=== PATIENT | male | born 1955 | race Caucasian/White ===

== ENCOUNTER 2023-02-08 06:10 | Day surgery (SDC) | payer MEDICARE, BC ==
[2023-02-08] MEDS ORDERED: Xylocaine 1% Vial 30 ML PF IJ ONE (06:13)
[2023-02-08] MEDS ORDERED: Marcaine Mpf 0.5% Vial 30 Ml ONE (06:13)
[2023-02-08] MEDS ORDERED: CEFAZOLIN 2 GM-D5W BAG** 2 GM/50 ML ML IV SCH (06:30)
[2023-02-08] MEDS ORDERED: Lactated Ringers 1,000 ML IV SCH (06:30)
[2023-02-08 06:35] LABS: Hematocrit 42.4 % (42-50); Mean Cell Volume 91.8 fL (78-100); Mean Corpuscular Hemoglobin 30.3 pg (26-32); Mean Platelet Volume 9.1 fL (7.5-11.0); Platelet Count 248 x10^3/uL (150-450); Red Blood Count 4.62 x10^6/uL (4.1-5.6); Red Cell Distribution Width 13.6 % (11.5-14.0); White Blood Count 8.4 x10^3/uL (4.0-10.5)
[2023-02-08 06:39] VITALS: RESP 18
[2023-02-08 06:51] LABS: ALBUMIN 3.9 g/dL (3.5-5.0); ANION GAP 16.1 MEQ/L (5-15); BILIRUBIN,TOTAL 0.6 mg/dL (0.2-1.3); Calcium 8.4 mg/dL (8.4-10.2); Creatinine 1 1.5 mg/dL (0.66-1.25); EST GLOMERULAR FILTRATION RATE 49.6 ML/MIN; Potassium 4.5 mmol/L (3.5-5.1); Total Protein 7.2 g/dL (6.3-8.2)
[2023-02-08] MEDS ORDERED: DIPRIVAN 200 MG/20 ML IV ONE ×2 (06:56)
[2023-02-08] MEDS ORDERED: Versed 2 MG/2 ML Injection ONE (06:56)
[2023-02-08] MEDS ORDERED: SUBLIMAZE 100 MCG/2 ML ONE (06:56)
[2023-02-08] MEDS ORDERED: Xylocaine-Mpf 2% 5 Ml Vial ONE (06:56)
[2023-02-08 07:07] LABS: INR 0.98 (0.8-3.0); PROTIME 10.7 SECONDS (9.4-12.5); PTT 26.8 SECONDS (25.1-36.5)
[2023-02-08 08:33] VITALS: O2SAT 97
[2023-02-08 09:03] VITALS: BP 127/98; PULSE 65; TEMP 97.6
--- NOTE | 2023-02-11 08:00 | OP ---
SURGERY DATE: 02/08/2023 0704 PREOPERATIVE DIAGNOSES: 1) Soft tissue mass left foot. 2) Osteoarthritis first tarsometatarsal joint left foot. 3) Pain left foot. POSTOPERATIVE DIAGNOSES: 1) Soft tissue mass left foot. 2) Osteoarthritis first tarsometatarsal joint left foot. 3) Pain left foot. PROCEDURES: 1) Removal of soft tissue mass. 2) Arthrotomy of tarsometatarsal joint left foot. SURGEON: Ciaran Avila DPM. SNIPPER: None. ANESTHESIA: Monitored anesthesia care. HEMOSTASIS: Ankle tourniquet set 250 mm of [place] for approximately 25 total tourniquet minutes. ESTIMATED BLOOD LOSS: Minimal. INJECTABLES: 16 cc of a 1:1 mixture of 1% lidocaine plain and 0.5% bupivacaine plain injected in a V block type fashion to the proximal aspect of the surgical site left foot. INDICATION FOR SURGERY: Yogi is a very pleasant 67-year-old male who presented to my clinic with complaints of pain to the inner aspect of the left foot. The patient has had this pain for quite some time which has caused him some difficulty with ambulation particularly on uneven terrain and does seem to come out of nowhere sometimes. The patient was offered a number of modalities from the conservative perspective. The patient demonstrated no resolution with the modality. MRI was obtained showing some small soft tissue mass in that area. However, some degenerative changes to the first tarsometatarsal joint. As a result, options were discussed with the patient and the patient opted to proceed with surgical intervention at this time. The patient's pain is reproducible and is localized fairly closely to where the soft tissue mass and the arthritis is so options were discussed with the patient and the patient wished to proceed with removal of the soft tissue mass as well as the arthrotomy of the joint in hopes to alleviate her pain. The patient understands all risks, complications and benefits of surgical intervention at this time including but not limited to infection, hematoma, seroma, possibility of delayed wound healing, nonwound healing, possible nerve damage, and possible need of surgical intervention at a later date or failure of surgical outcome. No guarantees were provided as to the outcome. It is with that we decided to proceed. DESCRIPTION OF PROCEDURE AND FINDINGS: The patient was brought into the OR and placed on the OR table in the supine position. At this time monitored anesthesia care was administered. A well-padded ankle tourniquet was applied to the patient's left ankle. The left lower extremity was prepped and draped in the typical sterile fashion and lowered onto the surgical field. At this time, the pinpoint tenderness location was identified. Esmarch was utilized to exsanguinate the leg. A linear incision was made over the point of maximum tenderness which was identified previously this was made making sure not to damage any neurovascular structures along the way. This was carried down to the tarsometatarsal joint where obvious osteoarthritis was identified and resected from the joint. The soft tissue mass was found off the plantar aspect of the tarsometatarsal joint which seemed to connect with some atrophy to the abductor hallucis muscle belly which was resected of its fascial tissue on the dorsal aspect and some of the adipose tissue was removed from this site as well. Following this, copious amounts of sterile saline were utilized to flush the surgical site. A closure consisting of 4-0 Monocryl simple buried interrupted was utilized for the subcutaneous margins and 3-0 Nylon in a horizontal mattress-type fashion was utilized to coapt the skin edges in an everted-type fashion. Dressing consisting of Betadine, Adaptic, 4x4, Kerlix and KATIUSKA was then applied to the patient's left lower extremity. The patient was reversed from anesthesia and returned to the postoperative anesthesia care unit with vital signs stable and vascular status intact. The patient handled the anesthesia as well as the procedure without significant complication. Postoperative orders as indicated in the patient's discharge chart.
== END 2023-02-08 08:55 | disposition home or self-care (01) ==
LOC: SDC 06:10
PROVIDERS: ATTEND Podiatrist Foot & Ankle Surgery
DX: R22.42 Localized swelling, mass and lump, left lower limb (principal); M19.072 Primary osteoarthritis, left ankle and foot; M79.672 Pain in left foot; I10 Essential (primary) hypertension
CPT/HCPCS: 36415; 80053; 85027; 85610; 85730; 93005; J0690; J2001; J2250; J2704; J3010

== ENCOUNTER 2023-02-15 06:13 | Day surgery (SDC) | payer MEDICARE, BC ==
[2023-02-15] MEDS ORDERED: Xylocaine 1% Vial 30 ML PF IJ ONE (06:27)
[2023-02-15] MEDS ORDERED: Marcaine Mpf 0.5% Vial 30 Ml ONE (06:27)
[2023-02-15] MEDS ORDERED: CEFAZOLIN 2 GM-D5W BAG** 2 GM/50 ML ML IV SCH (06:30)
[2023-02-15] MEDS ORDERED: Lactated Ringers 1,000 ML IV SCH (06:30)
[2023-02-15] MEDS ORDERED: Versed 2 MG/2 ML Injection IV PRN (07:14)
[2023-02-15] MEDS ORDERED: SUBLIMAZE 100 MCG/2 ML ONE (08:33)
[2023-02-15] MEDS ORDERED: Versed 2 MG/2 ML Injection ONE ×3 (08:33→08:38)
[2023-02-15 09:40] VITALS: BP 120/70; PULSE 60; RESP 18; TEMP 97; O2SAT 95
--- NOTE | 2023-02-18 14:28 | OP ---
SURGERY DATE: 02/15/2023 SURGERY TIME: 828 PREOPERATIVE DIAGNOSIS: 1. SOFT TISSUE MASS LEFT FOOT. POSTOPERATIVE DIAGNOSIS: 1. SOFT TISSUE MASS LEFT FOOT. PROCEDURE: 1. Removal of soft tissue mass left foot. SURGEON: Ciaran Avila D.P.M. HEEL CASER: None. ANESTHESIA: [place] with versed and a local block consisting of 20 cc of a 1:1 mixture of 1% Lidocaine plain and 0.5% Bupivicaine plain injected in a B-block type fashion. HEMOSTASIS: An ankle tourniquet set to 250 mm Hg for approximately 8 total tourniquet minutes. ESTIMATED BLOOD LOSS: Minimal. MATERIALS: 4-0 Monocryl, 3-0 Nylon. INJECTABLES: 20 cc of a 1:1 mixture of 1% Lidocaine plain and 0.5% Bupivicaine plain injected in a B-block type fashion. DESCRIPTION OF PROCEDURE: The patient was brought into the OR. Placed on the OR table in the supine position at this time. The patient was provided Versed for light sedation. A well-padded ankle tourniquet was applied and the tourniquet was set to 250 mm Hg. At this time, the left foot was prepped and draped in the typical sterile fashion and lowered onto the surgical field. At this time, a 20 cc injection was provided in a B-block type fashion in order to block the surgical site. Following this, a linear incision was made at the moccasin line at the plantar medial aspect of the left foot just proximal to the 1st metatarsophalangeal joint. This was carried down utilizing blunt dissection in order to identify the soft tissue mass. The soft tissue mass was inspected and it did appear to look like a ganglion cyst which was attempted to be carefully resected. However, I do believe it was popped. The capsule of the ganglion cyst was removed and the stalk was identified which was cauterized. A large amount of adipose tissue was identified as well with some encapsulation which was removed from this site as well. Both of these were handed off the field for pathological assessment. At this time, copious amounts of sterile saline were utilized to flush the surgical site. Soft tissue mass over the plantar aspect of the foot was palpated and felt to be completely removed at that time. At that time, 4-0 Monocryl was utilized to coapt the subcutaneous edges in a simple interrupted type fashion and 3-0 Nylon was utilized in a horizontal mattress type fashion to coapt the skin edges in an everted type fashion. Tourniquet was let down with approximately 8 total tourniquet minutes. The patient was then reversed from anesthesia and returned to the postoperative anesthesia care unit with vital signs stable and vascular status intact. The patient handled the anesthesia as well as the procedure without significant complication. Postoperative orders as indicated in the patient's discharge chart.
== END 2023-02-15 08:48 | disposition home or self-care (01) ==
LOC: SDC 06:13
PROVIDERS: ATTEND Podiatrist Foot & Ankle Surgery
DX: R22.42 Localized swelling, mass and lump, left lower limb (principal)
CPT/HCPCS: 28039; J0690; J2001; J2250; J3010

== ENCOUNTER 2023-05-31 03:26 | Observation (INO) | payer MEDICARE, BC ==
[2023-05-31] MEDS ORDERED: BABY ASPIRIN 81 MG CHEW PO ONE (03:54)
--- NOTE | 2023-05-31 03:57 | ERPHSYRPT ---
- History of Present Illness Time Seen by Provider: 05/31/23 03:40 Historian: patient, family Exam Limitations: no limitations Patient Subjective Stated Complaint: pt states he has been having intermittent chest pain since yesterday. tonight pain is worse and radiating down his lt arm. pt states wrosew ith laying down and coughing Triage Nursing Assessment: pt alert and oriented, answers questions approp. pt ambulates into room with steady gait noted. respirations nonlabored with lungs cta. skin warm and dry. heart rate 69 on monitor, sinus rhythm Physician History: This is an obese 67-year-old white male patient of Dr. Mojica who has been found in the past on a cardiac catheterization procedure to have some at herosclerotic heart disease but no cardiac stent was placed. Patient is not on any anticoagulation therapy. He is on a baby aspirin today. He presents to the emergency department with left-sided sharp chest pain that radiates into the left arm. There was mild intermittent pain yesterday evening and it seemed to let up some but then returned this morning stronger in intensity. Patient also has had a mild coughing episode. Patient was never told he has actually had a myocardial infarction. His technician chemical cleaning is Dr. Padilla. He has stage III kidney disease and sees inside sales lead Dr. Elena. He has had no recent long travel. He has no bleeding or clotting disorders. Patient does not smoke and has never smoked. He does have a history of hyperlipidemia and hypertension. Patient has not taken his morning medication. Timing/Duration: yesterday Quality: sharpness Location: other (Left anterior chest) Chest Pain Radiation: arm (Left) Severity of Pain-Max: mild (Moderate) Modifying Factors: Improves With: coughing (Worsens), lying down (Worsens) Associated Symptoms: cough (Mild dry) Prior Chest Pain/Cardiac Workup: cardiac cath Nitro Today/Relief: no nitro taken today Aspirin Treatment Today: no aspirin today Allergies/Adverse Reactions: No Known Drug Allergies Allergy (Verified 05/31/23 03:47) Home Medications: Aspirin 81 gm Chew [Baby Aspirin 81 mg Chew] 1 tab PO DAILY 01/22/23 [History] Lisinopril 5 mg [Zestril 5 MG] 1 tab PO DAILY 01/22/23 [History] Metoprolol Succinate 50 mg [Toprol Xl 50 MG] 50 mg PO DAILY 01/22/23 [History] Rosuvastatin Calcium 10 mg PO DAILY 01/22/23 [History] Tadalafil [Cialis] 5 mg PO DAILY PRN PRN 01/22/23 [History] Zolpidem Tartrate 10 mg [Ambien 10 MG] 1 tab PO HS 01/22/23 [History] Hx Tetanus, Diphtheria Vaccination/Date Given: Yes Hx Influenza Vaccination/Date Given: Yes Hx Pneumococcal Vaccination/Date Given: Yes Immunizations Up to Date: Yes Travel Risk - International Travel Have you traveled outside of the country in past 3 weeks: No - Coronavirus Screening Are you exhibiting any of the following symptoms?: No Close contact with a COVID-19 positive Pt in past 14-21 Days: No - Vaccine Status Have you recieved a Covid-19 vaccination: Yes Planning Rn: Genticel - Vaccination Dates Date of 2cond Vaccination (if applicable): 2020 - Review of Systems Constitutional: No Symptoms Eyes: No Symptoms Ears, Nose, & Throat: No Symptoms Respiratory: Cough Cardiac: Chest Pain Abdominal/Gastrointestinal: No Symptoms Genitourinary Symptoms: No Symptoms Musculoskeletal: No Symptoms Skin: No Symptoms Neurological: No Symptoms Psychological: No Symptoms Endocrine: No Symptoms Hematologic/Lymphatic: No Symptoms Immunological/Allergic: No Symptoms All Other Systems: Reviewed and Negative - Past Medical History Pertinent Past Medical History: Yes Neurological History: No Pertinent History ENT History: Cataracts Cardiac History: No Pertinent History, High Cholesterol, Hypertension Respiratory History: No Pertinent History, Other Endocrine Medical History: No Pertinent History Musculoskeletal History: No Pertinent History GI Medical History: Gallbladder Disease History: No Pertinent History, Renal Disease Psycho-Social History: No Pertinent History Male Reproductive Disorders: No Pertinent History Other Medical History: insomnia, sinus, gallstone,enoch cataract removal, stage 3 kidney disease - Past Surgical History Past Surgical History: Yes Neuro Surgical History: No Pertinent History Cardiac: No Pertinent History Respiratory: Other Gastrointestinal: Cholecystectomy Genitourinary: No Pertinent History Musculoskeletal: No Pertinent History Male Surgical History: No Pertinent History Other Surgical History: sinus surgery x4 left foot surgery. heart cath- no stents, some 30% blockages - Social History Smoking Status: Never smoker Exposure to second hand smoke: No Drug Use: none Patient Lives Alone: Yes - Nursing Vital Signs Nursing Vital Signs: Initial Vital Signs Temperature 97.6 F 12/01/23 03:34 Pulse Rate 68 05/31/23 03:34 Respiratory Rate 16 05/31/23 03:34 Blood Pressure 130/81 05/31/23 03:34 O2 Sat by Pulse Oximetry 95 05/31/23 03:34 Pain Scale Pain Intensity 3 - Physical Exam General Appearance: no apparent distress, alert, obese Eye Exam: PERRL/EOMI, eyes nml inspection Ears, Nose, Throat Exam: normal ENT inspection, moist mucous membranes Neck Exam: normal inspection, non-tender, supple, full range of motion Respiratory Exam: normal breath sounds, chest tenderness, lungs clear, airway intact, No respiratory distress Cardiovascular Exam: regular rate/rhythm, normal heart sounds, normal peripheral pulses Gastrointestinal/Abdomen Exam: soft, normal bowel sounds, No tenderness Rectal Exam: not done Back Exam: normal inspection, normal range of motion, No CVA tenderness, No vertebral tenderness Extremity Exam: normal inspection, normal range of motion, pelvis stable Neurologic Exam: alert, oriented x 3, cooperative, neon molder II-XII nml as tested, normal mood/affect, nml cerebellar function, nml station & gait, sensation nml Skin Exam: normal color, warm, dry Lymphatic Exam: No adenopathy SpO2 Interpretation: normal SpO2: 95 O2 Delivery: Room Air - Course Nursing assessment & vital signs reviewed: Yes EKG Interpreted by Me: RATE (69), Sinus Rhythm, Left [place] Deviation (Borderline), NORMAL INTERVALS, NORMAL QRS, NORMAL ST-T, Other (No acute ischemic changes on today's twelve-lead EKG) Ordered Tests: Active Orders 24 hr Category Date Time Status Precision Lens Generator STAT Care 05/31/23 03:55 Active EKG-ER Only STAT Care 05/31/23 03:54 Active IV Insertion STAT Care 05/31/23 03:54 Active Pulse Oximetry (ED) STAT Care 05/31/23 03:54 Active CHEST 1 VIEW (PORTABLE) Stat Exams 05/31/23 03:54 Taken CBC W DIFF Stat Lab 05/31/23 03:30 Completed CMP Stat Lab 05/31/23 03:30 Completed D-DIMER QUANTITATIVE Stat Lab 05/31/23 03:30 Completed NT PRO BNPII Stat Lab 05/31/23 03:30 Completed TROPONIN Q4H Lab 05/31/23 03:30 Completed TROPONIN Q4H Lab 05/31/23 08:00 Ordered TROPONIN Q4H Lab 05/31/23 12:00 Ordered Transfer Order Routine Transfer 05/31/23 Ordered Medication Summary Generic Name Dose Route Start Last Admin Trade Name Kelly PRN Reason Stop Dose Admin Sodium Chloride 1,000 mls @ 100 mls/hr 05/31/23 04:45 05/31/23 04:41 Sodium Chloride 0.9% 1000 Ml IV 06/30/23 04:44 100 mls/hr .Q10H HARRY Administration Discontinued Medications Generic Name Dose Route Start Last Admin Trade Name Kelly PRN Reason Stop Dose Admin Aspirin 324 mg 05/31/23 03:54 05/31/23 04:03 Aspirin 81 Mg Tab.Chew PO 05/31/23 03:55 324 mg STAT ONE Administration Aspirin Confirm 05/31/23 04:00 Aspirin 81 Mg Tab.Chew Administered 05/31/23 04:01 Dose 324 mg .ROUTE .STK-MED ONE Morphine Sulfate 2 mg 05/31/23 04:13 05/31/23 04:46 Morphine Sulfate 2 Mg/Ml Inj IV 05/31/23 04:14 2 mg STAT ONE Administration Morphine Sulfate Confirm 05/31/23 04:39 Morphine Sulfate 4 Mg/Ml Injection Administered 05/31/23 04:40 Dose 4 mg .ROUTE .STK-MED ONE Morphine Sulfate Confirm 05/31/23 04:45 Morphine Sulfate 2 Mg/Ml Inj Administered 05/31/23 04:46 Dose 2 mg .ROUTE .STK-MED ONE Ondansetron HCl 4 mg 05/31/23 04:13 05/31/23 04:43 Ondansetron Hcl 4 Mg/2 Ml Vial IV 05/31/23 04:14 4 mg STAT ONE Administration Ondansetron HCl Confirm 05/31/23 04:39 Ondansetron Hcl 4 Mg/2 Ml Vial Administered 05/31/23 04:40 Dose 4 mg .ROUTE .STK-MED ONE Lab/Rad Data: Laboratory Result Diagrams 05/31/23 03:30 05/31/23 03:30 Laboratory Results 05/31/23 05/31/23 05/31/23 Range/Units 03:30 03:30 03:30 WBC (4.0-10.5) x10^3/uL RBC (4.1-5.6) x10^6/uL Hgb (12.5-18.0) g/dL Hct (42-50) % MCV (78-100) fL MCH (26-32) pg MCHC (32-36) g/dL RDW (11.5-14.0) % Plt Count (150-450) x10^3/uL MPV (7.5-11.0) fL Gran % (36.0-66.0) % Immature Gran % (Auto) (0.00-0.4) % Nucleat RBC Rel Count (0.00-0.1) % Eos # (Auto) (0-0.5) x10^3/uL Immature Gran # (Auto) (0.00-0.03) x10^3u/L Absolute Lymphs (auto) (1.0-4.6) x10^3/uL Absolute Monos (auto) (0.0-1.3) x10^3/uL Absolute Nucleated RBC (0.00-0.01) x10^3u/L Lymphocytes % (24.0-44.0) % Monocytes % (0.0-12.0) % Eosinophils % (0.00-5.0) % Basophils % (0.0-0.4) % Absolute Granulocytes (1.4-6.9) x10^3/uL Basophils # (0-0.4) x10^3/uL D-Dimer 0.35 (0.0-0.50) mg/L Sodium 138 (137-145) mmol/L Potassium 4.1 (3.5-5.1) mmol/L Chloride 104 (98-107) mmol/L Carbon Dioxide 26 (22-30) mmol/L Anion Gap 12.7 (5-15) MEQ/L BUN 21 H (9-20) mg/dL Creatinine 1.48 H (0.66-1.25) mg/dL Estimated GFR 51.5 ML/MIN Glucose 98 (74-106) mg/dL Calcium 8.8 (8.4-10.2) mg/dL Total Bilirubin 0.70 (0.2-1.3) mg/dL AST 29 (17-59) U/L ALT 23 (0-50) U/L Alkaline Phosphatase 54 (38-126) U/L Troponin I < 0.012 (0.000-0.034) ng/mL NT-Pro-B Natriuret Pep 98.0 (<300) pg/mL Serum Total Protein 7.6 (6.3-8.2) g/dL Albumin 4.1 (3.5-5.0) g/dL 05/31/23 Range/Units 03:30 WBC 8.6 (4.0-10.5) x10^3/uL RBC 4.84 (4.1-5.6) x10^6/uL Hgb 14.6 (12.5-18.0) g/dL Hct 44.2 (42-50) % MCV 91.3 (78-100) fL MCH 30.2 (26-32) pg MCHC 33.0 (32-36) g/dL RDW 13.2 (11.5-14.0) % Plt Count 271 (150-450) x10^3/uL MPV 9.0 (7.5-11.0) fL Gran % 62.5 (36.0-66.0) % Immature Gran % (Auto) 0.5 H (0.00-0.4) % Nucleat RBC Rel Count 0.0 (0.00-0.1) % Eos # (Auto) 0.27 (0-0.5) x10^3/uL Immature Gran # (Auto) 0.04 H (0.00-0.03) x10^3u/L Absolute Lymphs (auto) 1.90 (1.0-4.6) x10^3/uL Absolute Monos (auto) 0.97 (0.0-1.3) x10^3/uL Absolute Nucleated RBC 0.00 (0.00-0.01) x10^3u/L Lymphocytes % 22.0 L (24.0-44.0) % Monocytes % 11.3 (0.0-12.0) % Eosinophils % 3.1 (0.00-5.0) % Basophils % 0.6 (0.0-0.4) % Absolute Granulocytes 5.39 (1.4-6.9) x10^3/uL Basophils # 0.05 (0-0.4) x10^3/uL D-Dimer (0.0-0.50) mg/L Sodium (137-145) mmol/L Potassium (3.5-5.1) mmol/L Chloride (98-107) mmol/L Carbon Dioxide (22-30) mmol/L Anion Gap (5-15) MEQ/L BUN (9-20) mg/dL Creatinine (0.66-1.25) mg/dL Estimated GFR ML/MIN Glucose (74-106) mg/dL Calcium (8.4-10.2) mg/dL Total Bilirubin (0.2-1.3) mg/dL AST (17-59) U/L ALT (0-50) U/L Alkaline Phosphatase (38-126) U/L Troponin I (0.000-0.034) ng/mL NT-Pro-B Natriuret Pep (<300) pg/mL Serum Total Protein (6.3-8.2) g/dL Albumin (3.5-5.0) g/dL - Progress Progress: improved, re-examined Air Movement: good Progress Note: 05/31/23 04:18 This patient's medical workup is 1 of moderate complexity. Level of complexity in the workup performed is based on review of the patient's past medical history, review the patient's medication list, review the patient drug allergy list, history present illness and physical findings on examination. The workup in this patient includes placement of intravenous line, providing the patient with 4 baby aspirin to chew, CBC, CMP, D-dimer, BNP, troponin level, twelve-lead EKG and chest x-ray. We will also provide the patient with 2 mg of intravenous morphine and 4 mg of intravenous Zofran. 05/31/23 04:57 The laboratory results were interpreted by me. This point the patient does not show any acute, emergent laboratory data results that are of concern. However, this patient's heart score is over 4. We will contact the hospitalist regarding placing this patient in observation for acute coronary syndrome. This patient's chest x-ray was interpreted by me. There is no evidence of any acute cardiopulmonary process. The patient does have cardiomegaly. 05/31/23 05:37 I discussed this patient's history, presenting complaint, physical findings on examination and patient response to our intervention. Although the patient's laboratory data and twelve-lead EKG as well as chest x-ray did not show anything acute or emergent, patient's heart score is at least 5 on my calculation. I spoke with telehospitalist Dr. Campoverde and we will place him in observation on telemetry and rule him out with a diagnosis of acute coronary syndrome. Blood Culture(s) Obtained: No Antibiotics given: No Counseled pt/family regarding: lab results, diagnosis, rad results Medical Desision Making - Independent Historian Additional History obtained from: Spouse - Discussion of managment Care discussed with:: hospitalist Reviewed:: Test results, Need for additional workup Agreed on:: place in obs Will see patient: in hospital - Diagnostic Testing Diagnostic test were ordered, analyzed, and reviewed by me: Yes Radiological Interpretation: Interpreted by me, Teleradiologist Report - Risk of complications The pt has a high risk of morbidity or mortality based on: Decision regarding hospitilization or escalation of hosp level of care - Departure Departure Disposition: Observation Clinical Impression: Acute coronary syndrome Condition: Stable Critical Care Time: No Referrals: ONI MOJICA [Primary Care Provider] - Follow up/PCP as directed
[2023-05-31] MEDS ORDERED: BABY ASPIRIN 81 MG CHEW ONE (04:00)
[2023-05-31 04:01] LABS: Absolute Neutrophil Ct (ANC) 5.39 x10^3/uL (1.4-6.9); BASOPHIL % 0.6 % (0.0-0.4); Basophil (Absolute #) 0.05 x10^3/uL (0-0.4); Eosinophil % 3.1 % (0.00-5.0); Eosinophil (Absolute #) 0.27 x10^3/uL (0-0.5); Hematocrit 44.2 % (42-50); Hemoglobin 14.6 g/dL (12.5-18.0); IMMATURE GRAN # 0.04 x10^3u/L (0.00-0.03); IMMATURE GRAN % 0.5 % (0.00-0.4); Mean Cell Volume 91.3 fL (78-100); Mean Corpuscular Hemoglobin 30.2 pg (26-32); Monocyte (Absolute #) 0.97 x10^3/uL (0.0-1.3); Monocytes % 11.3 % (0.0-12.0); Neutrophil % 62.5 % (36.0-66.0); Platelet Count 271 x10^3/uL (150-450); Red Blood Count 4.84 x10^6/uL (4.1-5.6); Red Cell Distribution Width 13.2 % (11.5-14.0); White Blood Count 8.6 x10^3/uL (4.0-10.5)
[2023-05-31] MEDS ORDERED: MORPHINE SULFATE 2 MG INJ IV ONE (04:13)
[2023-05-31] MEDS ORDERED: Zofran 4 MG/2 ML VIAL IV ONE (04:13)
[2023-05-31 04:22] LABS: ALBUMIN 4.1 g/dL (3.5-5.0); ANION GAP 12.7 MEQ/L (5-15); BILIRUBIN,TOTAL 0.7 mg/dL (0.2-1.3); Calcium 8.8 mg/dL (8.4-10.2); Creatinine 1 1.48 mg/dL (0.66-1.25); EST GLOMERULAR FILTRATION RATE 51.5 ML/MIN; Potassium 4.1 mmol/L (3.5-5.1); Total Protein 7.6 g/dL (6.3-8.2)
[2023-05-31] MEDS ORDERED: MORPHINE SULFATE 4 MG INJ ONE (04:39)
[2023-05-31] MEDS ORDERED: Zofran 4 MG/2 ML VIAL ONE (04:39)
[2023-05-31] MEDS: Sodium Chloride 0.9% 1000 ML 1,000 ML IV SCH ×4 (04:41→23:54)
[2023-05-31] MEDS ORDERED: MORPHINE SULFATE 2 MG INJ ONE (04:45)
[2023-05-31] MEDS ORDERED: Zofran 4 MG/2 ML VIAL IV PRN (06:01)
[2023-05-31] MEDS ORDERED: TYLENOL 325 MG PO PRN (06:01)
--- NOTE | 2023-05-31 07:05 | PCM.HP ---
History of Present Illness - Chief Complaint Chief Complaint: Acute coronary syndrome Date: 05/31/23 History of Present Illness: Mr. Danielson is a 67 year old male with a past medical history significant for hypertension, hyperlipidemia, chronic kidney disease stage IIIa and previous MT status post cardiac cath in January 2023 that had demonstrated noncritical coronary artery disease that did not require stenting (35%) who presents to the hospital with complaints of increasing chest pain for the past couple days that traveled down the L arm. He denies any fever or chills. No shortness of breath. No nausea, vomiting or diarrhea. - Review of Systems Constitutional: No Symptoms Eyes: No Symptoms Ears, Nose, & Throat: No Symptoms Respiratory: No Symptoms Cardiac: Chest Pain Abdominal/Gastrointestinal: No Symptoms Genitourinary Symptoms: No Symptoms Musculoskeletal: No Symptoms Skin: No Symptoms Neurological: No Symptoms Psychological: No Symptoms Endocrine: No Symptoms Medications & Allergies Home Medications: Home Medication List Aspirin 81 gm Chew [Baby Aspirin 81 mg Chew] 1 tab PO DAILY 01/22/23 [History Confirmed 05/31/23] Lisinopril 5 mg [Zestril 5 MG] 1 tab PO DAILY 01/22/23 [History Confirmed 05/31/23] Metoprolol Succinate 50 mg [Toprol Xl 50 MG] 50 mg PO HS 01/22/23 [History Confirmed 05/31/23] Rosuvastatin Calcium 10 mg PO DAILY 01/22/23 [History Confirmed 05/31/23] Tadalafil [Cialis] 5 mg PO DAILY PRN PRN 01/22/23 [History Confirmed 05/31/23] Zolpidem Tartrate 10 mg [Ambien 10 MG] 1 tab PO HS 01/22/23 [History Confirmed 05/31/23] Omeprazole 20 mg PO DAILY 05/31/23 [History Confirmed 05/31/23] Allergies/Adverse Reactions: Allergies Allergy/AdvReac Type Severity Reaction Status Date / Time No Known Drug Allergies Allergy Verified 05/31/23 03:47 - Past Medical History Past Medical History: Yes Neurological History: No Pertinent History ENT History: Cataracts Cardiac History: No Pertinent History, High Cholesterol, Hypertension Respiratory History: No Pertinent History, Other Endocrine Medical History: No Pertinent History Musculoskelatal History: No Pertinent History GI Medical History: Gallbladder Disease History: No Pertinent History, Renal Disease Pyscho-Social History: No Pertinent History Male Reproductive Disorders: No Pertinent History Comment: insomnia, sinus, gallstone,enoch cataract removal, stage 3 kidney disease - Past Surgical History Past Surgical History: Yes Neuro Surgical History: No Pertinent History Cardiac History: No Pertinent History Respiratory Surgery: Other GI Surgical History: Cholecystectomy Genitourinary Surgical Hx: No Pertinent History Musculskeletal Surgical Hx: No Pertinent History Male Surgical History: No Pertinent History Other Surgical History: sinus surgery x4 left foot surgery. heart cath- no stents, some 30% blockages - Social History Smoking Status: Never smoker Exposure to second hand smoke: No Alcohol: None Drug Use: none - Physical Exam Vital Signs: Vital Signs - 24 hr Temp Pulse Pulse Resp BP BP Pulse Ox 05/31/23 05:42 95 05/31/23 05:01 68 18 136/82 92 L 05/31/23 04:30 65 22 107/61 94 L 05/31/23 04:00 69 17 125/82 93 L 05/31/23 03:54 97 05/31/23 03:34 97.6 F 68 68 16 130/81 95 General Appearance: no apparent distress Neurologic Exam: alert, oriented x 3 Neck Exam: supple Respiratory Exam: lungs clear, No rhonchi, No wheezing Cardiovascular Exam: regular rate/rhythm Gastrointestinal/Abdomen Exam: soft Extremity Exam: No pedal edema Skin Exam: normal color Results - Labs Lab/Micro Results: Lab Results-Last 24 Hours 05/31/23 05/31/23 05/31/23 Range/Units 03:30 03:30 03:30 WBC 8.6 (4.0-10.5) x10^3/uL RBC 4.84 (4.1-5.6) x10^6/uL Hgb 14.6 (12.5-18.0) g/dL Hct 44.2 (42-50) % MCV 91.3 (78-100) fL MCH 30.2 (26-32) pg MCHC 33.0 (32-36) g/dL RDW 13.2 (11.5-14.0) % Plt Count 271 (150-450) x10^3/uL MPV 9.0 (7.5-11.0) fL Gran % 62.5 (36.0-66.0) % Immature Gran % (Auto) 0.5 H (0.00-0.4) % Nucleat RBC Rel Count 0.0 (0.00-0.1) % Eos # (Auto) 0.27 (0-0.5) x10^3/uL Immature Gran # (Auto) 0.04 H (0.00-0.03) x10^3u/L Absolute Lymphs (auto) 1.90 (1.0-4.6) x10^3/uL Absolute Monos (auto) 0.97 (0.0-1.3) x10^3/uL Absolute Nucleated RBC 0.00 (0.00-0.01) x10^3u/L Lymphocytes % 22.0 L (24.0-44.0) % Monocytes % 11.3 (0.0-12.0) % Eosinophils % 3.1 (0.00-5.0) % Basophils % 0.6 (0.0-0.4) % Absolute Granulocytes 5.39 (1.4-6.9) x10^3/uL Basophils # 0.05 (0-0.4) x10^3/uL D-Dimer 0.35 (0.0-0.50) mg/L Sodium 138 (137-145) mmol/L Potassium 4.1 (3.5-5.1) mmol/L Chloride 104 (98-107) mmol/L Carbon Dioxide 26 (22-30) mmol/L Anion Gap 12.7 (5-15) MEQ/L BUN 21 H (9-20) mg/dL Creatinine 1.48 H (0.66-1.25) mg/dL Estimated GFR 51.5 ML/MIN Glucose 98 (74-106) mg/dL Calcium 8.8 (8.4-10.2) mg/dL Total Bilirubin 0.70 (0.2-1.3) mg/dL AST 29 (17-59) U/L ALT 23 (0-50) U/L Alkaline Phosphatase 54 (38-126) U/L Troponin I (0.000-0.034) ng/mL NT-Pro-B Natriuret Pep 98.0 (<300) pg/mL Serum Total Protein 7.6 (6.3-8.2) g/dL Albumin 4.1 (3.5-5.0) g/dL 05/31/23 Range/Units 03:30 WBC (4.0-10.5) x10^3/uL RBC (4.1-5.6) x10^6/uL Hgb (12.5-18.0) g/dL Hct (42-50) % MCV (78-100) fL MCH (26-32) pg MCHC (32-36) g/dL RDW (11.5-14.0) % Plt Count (150-450) x10^3/uL MPV (7.5-11.0) fL Gran % (36.0-66.0) % Immature Gran % (Auto) (0.00-0.4) % Nucleat RBC Rel Count (0.00-0.1) % Eos # (Auto) (0-0.5) x10^3/uL Immature Gran # (Auto) (0.00-0.03) x10^3u/L Absolute Lymphs (auto) (1.0-4.6) x10^3/uL Absolute Monos (auto) (0.0-1.3) x10^3/uL Absolute Nucleated RBC (0.00-0.01) x10^3u/L Lymphocytes % (24.0-44.0) % Monocytes % (0.0-12.0) % Eosinophils % (0.00-5.0) % Basophils % (0.0-0.4) % Absolute Granulocytes (1.4-6.9) x10^3/uL Basophils # (0-0.4) x10^3/uL D-Dimer (0.0-0.50) mg/L Sodium (137-145) mmol/L Potassium (3.5-5.1) mmol/L Chloride (98-107) mmol/L Carbon Dioxide (22-30) mmol/L Anion Gap (5-15) MEQ/L BUN (9-20) mg/dL Creatinine (0.66-1.25) mg/dL Estimated GFR ML/MIN Glucose (74-106) mg/dL Calcium (8.4-10.2) mg/dL Total Bilirubin (0.2-1.3) mg/dL AST (17-59) U/L ALT (0-50) U/L Alkaline Phosphatase (38-126) U/L Troponin I < 0.012 (0.000-0.034) ng/mL NT-Pro-B Natriuret Pep (<300) pg/mL Serum Total Protein (6.3-8.2) g/dL Albumin (3.5-5.0) g/dL - Radiology Impressions Radiology Exams & Impressions: Radiology Procedures Category Date Time Status CHEST 1 VIEW (PORTABLE) Stat Exams 05/31/23 03:54 Taken - Other Procedures and Tests Respiratory Therapy 05/31/23 06:01 EKG REPEAT IN AM Assessment/Plan (1) Chest pain Current Visit: No Status: Acute Assessment & Plan: Chest pain with radiation down L arm - had previous cardiac cath in January 2023 but no stentable lesions (35% stenosis in two spots), but may have progressed 1. Will admit to observation status 2. Trend troponin 3. ASA 4. Beta krystian 5. Telemetry 6. Monitor chest pain symptoms - may require cardiology eval/stress test/cath Code(s): R07.9 - CHEST PAIN, UNSPECIFIED (2) Chronic kidney disease, stage 3a Current Visit: Yes Status: Acute Assessment & Plan: Creatinine 1.52 with GFR 52 mL/min likely from underlying hypertensive nephrosclerosis 1. Encourage PO intake 2. At moderate risk for contrast nephropathy if cardiac cath needed Code(s): N18.31 - CHRONIC KIDNEY DISEASE, STAGE 3A (3) Hypertensive chronic kidney disease with stage 1 through stage 4 chronic kidney disease, or unspecified chronic kidney disease Current Visit: Yes Status: Acute Assessment & Plan: Blood pressure under good control 1. Beta krystian 2. Low sodium diet 3. Monitor blood pressure readings Code(s): I12.9 - HYPERTENSIVE CHRONIC KIDNEY DISEASE W STG 1-4/UNSP CHR KDNY Telemedicine Encounter - Telemedicine Encounter Telemedicine Encounter: The entirety of this encounter was performed via Telemedicine"
--- NOTE | 2023-05-31 08:46 | XRAY ---
Indication: Chest pain. Cough. Comparison: March 16, 2014 Portable chest again demonstrates normal heart and lungs. Bony thorax with minimal degenerative changes. No new/acute findings.
[2023-05-31] MEDS: Zestril 5 MG PO SCH (10:54)
[2023-05-31] MEDS: Protonix 40MG Tablet PO SCH (10:54)
[2023-05-31] MEDS: MORPHINE SULFATE 2 MG INJ IV PRN ×3 (12:04→22:45)
--- NOTE | 2023-05-31 13:08 | TM.IN ---
Tele-Medicine Incident Note - Incident Note Tel-Medicine Incident Note: 05/31/23 1303: Discussed patient with his laboratory coordinator Dr. Padilla, will repeat EKG/trops in the morning, if no changes will discharge home. Continue ASA/ metoprolol. Dr. Padilla not recommending any further testing at this time or med changes at this time. He has had a recent cath January of 2023,but no stentable lesions (35% stenosis in two spots) Dr. Padilla will follow up in office in 2-3 weeks s/p discharge. Patient's creat is at baseline. Blood pressure has remained stable. CP has improved. Telemedicine Encounter - Telemedicine Encounter Telemedicine Encounter: The entirety of this encounter was performed via Telemedicine"
[2023-05-31] MEDS ORDERED: Lopressor 50 MG PO SCH (22:00)
[2023-05-31] MEDS ORDERED: ZOCOR 20MG PO SCH (22:00)
[2023-05-31] MEDS ORDERED: Ambien 10 MG PO SCH (22:00)
[2023-06-01] MEDS: MORPHINE SULFATE 2 MG INJ IV PRN (03:21)
[2023-06-01] MEDS: Sodium Chloride 0.9% 1000 ML 1,000 ML IV SCH (03:39)
--- NOTE | 2023-06-01 05:18 | PCM.DS ---
Discharge Summary Date of Admission: 05/31/23 06:00 Date of Discharge: 06/01/23 Admitting Physician: TONIA RUTLEDGE MD Primary Care Provider: ONI MOJICA Allergies Allergies No Known Drug Allergies Allergy (Verified 05/31/23 03:47) Hospital Summary - Hospital Course Hospital Course: Mr. Danielson is a 67 year old male with a past medical history significant for hypertension, hyperlipidemia, chronic kidney disease stage IIIa and previous DE status post cardiac cath in January 2023 that had demonstrated noncritical coronary artery disease that did not require stenting (35%) who presents to the hospital with complaints of increasing chest pain for the past couple days that traveled down the L arm. Discussed patient with his bartender helper Dr. Padilla, will repeat EKG/trops in the morning, if no changes will discharge home. Continue ASA/ metoprolol. Dr. Padilla not recommending any further testing at this time or med changes at this time. He has had a recent cath January of 2023,but no stentable lesions (35% stenosis in two spots) Dr. Padilla will follow up in office in 2-3 weeks s/p discharge. Patient's creat is at baseline. Blood pressure has remained stable. CP has improved. Repeat troponin/ekg normal. Advised patient to increase omeprazole to twice daily dosing. Will add carafate as well. This may be related to his GERD. Patient is stable and ready for discharge. Discharge Note New Diagnosis: CP New Medications: Increase omeprazole/carafate Follow Up: PCP/Valerie Latest Assessment & Plan Chest pain with radiation down L arm - had previous cardiac cath in January 2023 but no stentable lesions (35% stenosis in two spots), but may have progressed 1. Will admit to observation status 2. Trend troponin 3. ASA 4. Beta krystian 5. Telemetry 6. Monitor chest pain symptoms - may require cardiology eval/stress test/cath Code(s): R07.9 - CHEST PAIN, UNSPECIFIED (2) Chronic kidney disease, stage 3a Current Visit: Yes Status: Acute Assessment & Plan: Creatinine 1.52 with GFR 52 mL/min likely from underlying hypertensive nephrosclerosis 1. Encourage PO intake 2. At moderate risk for contrast nephropathy if cardiac cath needed Code(s): N18.31 - CHRONIC KIDNEY DISEASE, STAGE 3A (3) Hypertensive chronic kidney disease with stage 1 through stage 4 chronic kidney disease, or unspecified chronic kidney disease Current Visit: Yes Status: Acute Assessment & Plan: Blood pressure under good control 1. Beta krystian 2. Low sodium diet 3. Monitor blood pressure readings I spent 35 minutes [id number] with the patient on the day of discharge performing discharge exam, discussing hospital stay and discharge instructions with patient and caregivers, preparation of discharge records, prescriptions & referral forms and addressing any questions/concerns the patient had as documented above. - Vitals & Intake/Output Vital Signs: Vital Signs Temperature 98.5 F 06/01/23 04:00 Pulse Rate 65 06/01/23 04:00 Respiratory Rate 20 06/01/23 04:00 Blood Pressure 136/71 06/01/23 04:00 O2 Sat by Pulse Oximetry 90 L 06/01/23 04:00 Intake & Output: Intake & Output 05/29/23 05/30/23 05/31/23 06/01/23 11:59 11:59 11:59 11:59 Intake Total 360 2344 Output Total 450 Balance 360 1894 Weight 106.7 kg - Lab Result Diagrams: 05/31/23 03:30 05/31/23 03:30 Lab Results-Last 24 Hrs: Lab Results-Last 24 Hours 05/31/23 05/31/23 Range/Units 08:09 12:00 Troponin I < 0.012 < 0.012 (0.000-0.034) ng/mL - Radiology Exams Ordered Rad Exams-Entire Visit: Radiology Procedures Category Date Time Status CHEST 1 VIEW (PORTABLE) Stat Exams 05/31/23 03:54 Completed - Procedures and Test Procedures and Tests throughout Hospitalization: Therapy Orders & Screens 05/31/23 06:01 EKG REPEAT IN AM Comment: 05/31/23 07:36 Oxygen NASAL CANNULA 2 lpm Comment: Diagnosis: Acute coronary syndrome Discharge Exam General Appearance: no apparent distress Neurologic Exam: alert, oriented x 3, cooperative Eye Exam: PERRL, post op pupil defect (R) Neck Exam: normal inspection Respiratory Exam: normal breath sounds, chest tenderness, lungs clear Cardiovascular Exam: regular rate/rhythm, normal heart sounds Gastrointestinal/Abdomen Exam: soft, normal bowel sounds Male Genitalia Exam: deferred Rectal Exam: deferred Back Exam: normal inspection Extremity Exam: normal inspection Skin Exam: normal color Final Diagnosis/Problem List - Final Discharge Diagnosis/Problem (1) Chronic kidney disease, stage 3a Current Visit: Yes Status: Acute Code(s): N18.31 - CHRONIC KIDNEY DISEASE, STAGE 3A (2) Hypertensive chronic kidney disease with stage 1 through stage 4 chronic kidney disease, or unspecified chronic kidney disease Current Visit: Yes Status: Acute Code(s): I12.9 - HYPERTENSIVE CHRONIC KIDNEY DISEASE W STG 1-4/UNSP CHR KDNY (3) Chest pain Current Visit: No Status: Acute Code(s): R07.9 - CHEST PAIN, UNSPECIFIED - Discharge Disposition: Home, Self-Care Condition: Stable Prescriptions: New Sucralfate 1 gm [Carafate 1 GM] 1 g PO BID 14 Days #28 tablet Continue Tadalafil [Cialis] 5 mg PO DAILY PRN PRN PRN Reason: Insomnia Rosuvastatin Calcium 10 mg PO DAILY Metoprolol Succinate 50 mg [Toprol Xl 50 MG] 50 mg PO HS Lisinopril 5 mg [Zestril 5 MG] 1 tab PO DAILY Aspirin 81 gm Chew [Baby Aspirin 81 mg Chew] 1 tab PO DAILY Zolpidem Tartrate 10 mg [Ambien 10 MG] 1 tab PO HS Changed Omeprazole 20 mg PO BID #0 Follow up with: ONI MOJICA [Primary Care Provider] - 06/06/23 2:15 pm MARLENI PADILLA [CONSULTING PHYSICIAN] - 06/12/23 2:00 pm
[2023-06-01 08:08] VITALS: BP 111/56; PULSE 59; RESP 18; TEMP 97.2; O2SAT 92
[2023-06-01] MEDS: Zestril 5 MG PO SCH (11:04)
[2023-06-01] MEDS: Protonix 40MG Tablet PO SCH (11:04)
== END 2023-06-01 11:41 | disposition home or self-care (01) ==
LOC: ED 03:26 → MED SURG 06:00
PROVIDERS: ADMIT Internal Medicine Nephrology; ATTEND Internal Medicine Nephrology
DX: I12.9 Hypertensive chronic kidney disease with stage 1 through stage 4 chronic kidney disease, or unspecified chronic kidney disease (principal); N18.31 Chronic kidney disease, stage 3a; R07.9 Chest pain, unspecified; E78.5 Hyperlipidemia, unspecified; I25.2 Old myocardial infarction; Z79.899 Other long term (current) drug therapy; Z20.828 Contact with and (suspected) exposure to other viral communicable diseases
CPT/HCPCS: 36000; 36415; 71045; 80053; 83880; 84484; 85025; 85379; 93005; 93041; 93268; 94760; 96374; 96375; 99285; G0378; Q3014; J2270; J2405; A9270-GY

== ENCOUNTER 2024-09-30 09:20 | Day surgery (SDC) | payer MEDICARE, BC ==
[2024-09-30] MEDS ORDERED: Sodium Chloride 0.9(Preservative Free) 10 ML IJ ONE (09:21)
[2024-09-30] MEDS ORDERED: dexAMETHasone sodium phosphate IJ ONE (09:21)
[2024-09-30] MEDS ORDERED: propofoL IV ONE (10:07)
--- NOTE | 2024-09-30 12:01 | XRAY ---
Indication: Left L4-S1 transforaminal MUNIRA. Intraoperative fluoroscopy provided for 21 seconds. 4 digital spot image submitted for interpretation demonstrates posterior needle tips projecting over expected left L4 and L5 nerve roots. Small amount of contrast injected for needle tip placement. Correlate with intraoperative findings/report.
--- NOTE | 2024-09-30 12:58 | XRAY ---
21 seconds of fluoroscopy was used in surgery for a left L4-S1 transforaminal MUNIRA.
== END 2024-09-30 10:52 | disposition home or self-care (01) ==
LOC: SDC-PAIN 09:20
PROVIDERS: ATTEND Psychiatry & Neurology Pain Medicine
DX: M54.16 Radiculopathy, lumbar region (principal); E11.9 Type 2 diabetes mellitus without complications
CPT/HCPCS: 64483; 64484; 72100; 82947; J1100; J2704; Q9966

== ENCOUNTER 2024-11-18 09:31 | Day surgery (SDC) | payer MEDICARE, BC ==
[2024-11-18] MEDS ORDERED: methylPREDNISolone acetate IM ONE (09:32)
[2024-11-18] MEDS ORDERED: Sodium Chloride 0.9(Preservative Free) 10 ML IJ ONE (09:32)
[2024-11-18] MEDS ORDERED: propofoL IV ONE (12:16)
--- NOTE | 2024-11-18 13:48 | XRAY ---
14 seconds of fluoroscopy used in surgery for a caudal MUNIRA.
--- NOTE | 2024-11-18 13:49 | XRAY ---
Indication: Caudally MUNIRA. Intraoperative fluoroscopy provided for 14 seconds. 2 digital spot images submitted for interpretation demonstrates caudal needle tip projecting mid sacrum. Small amount of contrast injected for needle placement. Correlate with intraoperative findings/report.
[2024-11-18] MEDS ORDERED: Lactated Ringers 1,000 ML IV ONE (14:20)
== END 2024-11-18 12:48 | disposition home or self-care (01) ==
LOC: SDC-PAIN 09:31 → EDSTATUS 13:14
PROVIDERS: ATTEND Psychiatry & Neurology Pain Medicine
DX: M54.16 Radiculopathy, lumbar region (principal); E11.9 Type 2 diabetes mellitus without complications
CPT/HCPCS: 72220; 82947; J1010; J2704

== ENCOUNTER 2025-05-13 15:42 | Day surgery (SDC) | payer MEDICARE, BC ==
[2025-05-13] MEDS ORDERED: LIDOCAINE HCL 1% 50 MG/5 ML VL IJ ONE (15:43)
--- NOTE | 2025-05-13 20:48 | XRAY ---
Indication: Left piriformis injection. Intraoperative fluoroscopy provided for 22 seconds. Single digital spot image submitted for interpretation demonstrates posterior needle tip projecting over left piriformis. Small amount of contrast injected for needle tip placement. Correlate with intraoperative findings/report.
--- NOTE | 2025-05-14 12:03 | XRAY ---
22 seconds of fluoroscopy was used in surgery for a left piriformis injection.
== END 2025-05-13 17:45 | disposition home or self-care (01) ==
LOC: SDC-PAIN 15:42
PROVIDERS: ATTEND Psychiatry & Neurology Pain Medicine
DX: M79.18 Myalgia, other site (principal); E11.9 Type 2 diabetes mellitus without complications